=== PATIENT | female | born 1950 | race Asian ===

== ENCOUNTER 2018-12-04 10:02 | Emergency (ER) | payer BC ==
[~2018-12-04] VITALS: Ht 152.4 cm; Wt 59.0 kg
[2018-12-04 10:04] VITALS: Ht 152.4 cm; Wt 59.0 kg
[2018-12-04] MEDS ORDERED: IBUPROFEN 600 MG TAB PO ONE (12:00)
--- NOTE | 2018-12-04 12:07 | ERD ---
ER Documentation Chief Complaint Chief Complaint left knee pain since yesterday denies falling HPI 68-year-old female presents with complaint of left knee pain since yesterday. States that she has a history of arthritis in the same knee but the pain got acute yesterday. She thinks she might have twisted her knee. States that she has been taking ibuprofen. Denies any history of clotting disorders. Denies any numbness, tingling, fevers, chills, impaired range of motion. States that the pain is made worse when she ambulates. ROS All systems reviewed and are negative except as per history of present illness. Medications Home Meds Active Scripts Ibuprofen* (Motrin*) 600 Mg Tab, 600 MG PO Q6 for pain, #30 TAB Prov:LISA HIGGINS 12/04/18 Allergies Allergies: Coded Allergies: No Known Allergy (Unverified , 12/04/18) PMhx/Soc History of Surgery: Yes (Craniotomy-ruptured aneurysm,Hysterectomy) Anesthesia Reaction: No Hx Cardiac Disorders: Yes (HTN) Hx Alcohol Use: No Hx Substance Use: No Hx Tobacco Use: No Smoking Status: Never smoker FmHx Family History: No diabetes, No coronary disease, No other Physical Exam Vitals Vital Signs Date Temp Pulse Resp B/P (MAP) Pulse Ox O2 O2 Flow FiO2 Time Delivery Rate 12/04/18 99.2 80 18 121/71 99 10:04 (88) Physical Exam Const: No acute distress Head: Atraumatic Eyes: Normal Conjunctiva ENT: Normal External Ears, Nose and Mouth. Neck: Full range of motion. No meningismus. Resp: Clear to auscultation bilaterally Cardio: Regular rate and rhythm, no murmurs Abd: Soft, non tender, non distended. Normal bowel sounds Skin: No petechiae or rashes Back: No midline or flank tenderness Left knee: No cyanosis, or edema noted. Full range of motion. No erythema or ecchymosis noted. There is crepitus over the patella. Negative fluid fluid bulge test. Negative anterior drawer and posterior drawer test. Negative valgus and varus stress test. Distal pulses and sensation intact. Neur: Awake and alert Psych: Normal Mood and Affect Results 24 hrs Current Medications Medications Dose Sig/Susy Start Time Status Last (Trade) Ordered Route PRN Stop Time Admin Dose Reason Admin Ibuprofen 600 mg ONCE ONCE 12/04/18 DC 12/04/18 (Motrin) PO 12:00 11:52 12/04/18 12:01 Procedures/[facility] DIAGNOSTIC IMAGING REPORT Patient: SUSANA MUSA : 1950 Age: 68 Sex: F MR #: [id number] DOS: 12/04/18 1143 Ordering MD: LISA HIGGINS Location: [facility] Room/Bed: PROCEDURE: US Lower extremity Venous. CLINICAL INDICATION: leg edema, pain TECHNIQUE: Multiple sonographic images of the left lower extremity deep venous system was obtained utilizing grayscale, color-flow, compressive sonography and doppler imaging with augmentation. The images were reviewed on a PACS workstation. COMPARISON: None. FINDINGS: There is normal compressibility and flow within the left common femoral, femoral, posterior tibial, peroneal and popliteal veins. RPTAT: AA IMPRESSION: No sonographic evidence for deep venous thrombosis. .Mendel Fortune MD, MD Date Time Electronically viewed and signed by .Mendel Fortune MD, MD on 12/04/2018 12:20 .S/ CC: LISA HIGGINS [phone] DIAGNOSTIC IMAGING REPORT Patient: SUSANA MUSA : 1950 Age: 68 Sex: F MR #: [id number] DOS: 12/04/18 1143 Ordering MD: LISA HIGGINS Location: [facility] Room/Bed: PROCEDURE: CT OF THE LEFT KNEE. CLINICAL INDICATION: Knee pain and crepitus. TECHNIQUE: CT scan of the left knee was performed on a multi -slice scanner. No IV contrast was administered. Coronal and sagittal reformatted images were obtained from the axial source images. The total exam DLP equals 14.62 mGy-cm. The CDTI volume was 18.2 mGy. One or more of the following dose reduction techniques were used: - Automated exposure control. - Adjustment of the mA and/or kV according to patient size . - Use of iterative reconstruction technique. Images were reviewed on a high-resolution PACS workstation. Dicom images are available. COMPARISON: Knee radiograph 08/23/2015 FINDINGS: No evidence of acute fracture. No dislocation. No erosive changes or evidence of osteomyelitis. No aggressive appearing osseous lesion. Mild osteopenia. Advanced tricompartmental arthrosis with joint space narrowing and marginal osteophyte formation, most severe at the patellofemoral compartment where there is also subchondral sclerosis and mild subchondral cystic changes. Small joint effusion. No soft tissue mass or fluid collection. Evaluation of cruciate ligaments is limited by CT, however these appear intact. Quadriceps and patellar tendons are intact. IMPRESSION: Advanced tricompartmental osteoarthritis, most severe at the patellofemoral compartment. Small joint effusion. RPTAT:AAJJ Physician Keisha Date Time Electronically viewed and signed by Physician Keisha on 12/04/2018 12:46 RF/ CC: LISA HIGGINS [phone] MDM: CT of the knee was ordered and results was positive for osteoarthritis with effusion. Patient was advised that this needs to be managed on outpatient basis. Patient was provided referral to [facility]. Patient was given crutches as well as Constantino wrap. Splint Assessment: Neurovascularly intact post splint placement with good fit. I have low suspicion for neurovascular compromise, compartment syndrome, fracture, osteomyelitis, septic joint, or other emergent condition. Patient discharged with strict ER precautions. Patient advised to follow up with PMD. All questions answered at discharge. Departure Diagnosis: Primary Impression: Osteoarthritis Osteoarthritis location: knee Osteoarthritis type: primary Laterality: left Qualified Codes: M17.12 - Unilateral primary osteoarthritis, left knee Condition: Stable LISA HIGGINS December 04, 2018 12:07
[2018-12-04] MEDS ORDERED: IBUP-1542 PO (13:09)
== END 2018-12-04 13:55 | disposition home or self-care (01) ==
LOC: FTE 10:02
DX: M17.12 Unilateral primary osteoarthritis, left knee (principal); I10 Essential (primary) hypertension
CPT/HCPCS: 73700; 93971